=== PATIENT | male | born 1960 | race African-American/Black ===

== ENCOUNTER 2024-09-01 20:52 | Emergency (ER) | payer MEDICAID, OTHER ==
[~2024-09-01] VITALS: Ht 172.7 cm; Wt 63.5 kg
[2024-09-01 21:53] VITALS: BP 135/92; TEMP 36.8; O2SAT 98
[2024-09-02] MEDS: LIDOCAINE 5% PATCH TOP SCH (02:29)
[2024-09-02] MEDS: KETOROLAC 15MG/ML VIAL IM ONE (02:29)
[2024-09-02] MEDS: KETOROLAC 15MG/ML VIAL IM NR (02:34)
[2024-09-02 03:36] LABS: BASOPHILS % 0.8 % (0.0-2.0); DIFFERENTIAL COMMENT 0; EOSINOPHILS % 0.6 % (0.0-5.0); HEMATOCRIT. 35.2 % (42.0-52.0); HEMOGLOBIN. 10.9 g/dL (14.0-18.0); LYMPHOCYTES % 16.7 % (20.0-50.0); MEAN CORPUSCULAR HEMOGLOBIN 24.6 pg (28.0-32.0); MEAN CORPUSCULAR HGB CONC 30.9 g/dL (31.0-37.0); MEAN CORPUSCULAR VOLUME 79.5 fL (80.0-94.0); MEAN PLATELET VOLUME 6.5 fl (7.4-10.4); NEUTROPHILS % 72.9 % (40.0-76.0); PLATELET 236 x1000/uL (130-400); RED BLOOD CELL COUNT 4.43 mill/uL (4.7-6.1); RED CELL DISTRIBUTION WIDTH 16.4 % (11.6-14.6); WHITE BLOOD COUNT 9.4 x1000/uL (4.5-11.0)
[2024-09-02 03:43] LABS: CHLORIDE 106 mEq/L (98-107); POTASSIUM 4.2 mEq/L (3.5-5.1); SODIUM 137 mEq/L (136-145)
[2024-09-02 03:44] LABS: CALCIUM 9.8 mg/dL (8.7-10.4); CARBON DIOXIDE 25 mEq/L (21-32)
[2024-09-02 03:49] LABS: CREATININE 1.5 mg/dL (0.6-1.3); GLUCOSE 127 mg/dL (70-105); UREA NITROGEN BLOOD 23 mg/dL (9-23)
[2024-09-02 03:51] LABS: ALANINE AMINOTRANSFERASE 8 IU/L (10-49); ALBUMIN 4.3 g/dL (3.2-4.8); ASPARTATE AMINOTRANSFERASE 13 IU/L (<34); BILIRUBIN DIRECT 0.5 mg/dL (<=3.0); BILIRUBIN TOTAL 1.4 mg/dL (0.1-1.0); PROTEIN TOTAL 7.7 g/dL (6.0-8.3)
[2024-09-02 03:52] LABS: TROPONIN I HIGH SENSITIVITY < 4 ng/L (3.0-53)
[2024-09-02] MEDS ORDERED: AZIT250T12 MT (05:18)
[2024-09-02] MEDS ORDERED: HYDR-4001 MT ×2 (05:18)
[2024-09-02] MEDS ORDERED: IBUP-1523 MT (05:18)
[2024-09-02] MEDS ORDERED: ALBU90AE INH (05:18)
[2024-09-02 05:52] VITALS: PULSE 88; RESP 14; O2SAT 95
== END 2024-09-02 05:53 | disposition home or self-care (01) ==
LOC: ER 20:52
DX: S22.32XA Fracture of one rib, left side, initial encounter for closed fracture (principal); J18.9 Pneumonia, unspecified organism; J44.9 Chronic obstructive pulmonary disease, unspecified; Z79.899 Other long term (current) drug therapy; Z98.890 Other specified postprocedural states; W18.2XXA Fall in (into) shower or empty bathtub, initial encounter; Y93.E1 Activity, personal bathing and showering; Y92.89 Other specified places as the place of occurrence of the external cause; Y99.8 Other external cause status
CPT/HCPCS: 99285; 71045; 93005; 71250; 80076; 80048; 85025; 84484; 36415; 96372; J1885